=== PATIENT | male | born 1970 | race Caucasian/White ===

== ENCOUNTER 2016-12-19 23:30 | Emergency (ER) | payer OTHER ==
--- NOTE | 2016-12-20 01:56 | ED NURSING NOTES ---
Clinical Report - Nurses [facility] [address] [place] [address] 12/19/2016 23:32 Patient: AINSLEY TIM TRIAGE Triage time 00:26. Acuity: LEVEL 4. Chief Complaint: COUGH. 00:33. Alert. SEPSIS SCREEN: Sepsis Screen. Negative (no infection suspected/documented). --00:33 Harpreet Larios R.N. 00:26 12/20/16. BP: 150/72. HR: 96. RR: 16. O2 saturation: 99%. Temp: 97.9 F (oral). Pain level now: 0/10. --00:33 Harpreet Larios R.N. Weight: 111.1 kg stated. Height/Length: 67 inches Per Patient. BMI: 38.4. --00:31 Harpreet Larios R.N. Medications MetFORMIN HCl Oral (Tablet 1000 mg) 1 tablet, 2x a day. --00:28 Harpreet Larios R.N. Glipizide Oral, 2x a day (pt unsure of dose ). --00:29 Harpreet Larios R.N. ASA Oral 81mg, tona;y. --00:29 Harpreet Larios R.N. Lisinopril Oral 20 mg, daily. --00:30 Harpreet Larios R.N. Atorvastatin Calcium Oral (pt unsure of dose ). --00:31 Harpreet Larios R.N. Another bp med. --00:31 Harpreet Larios R.N. Medication/allergy information source: the patient. --00:33 Harpreet Larios R.N. Allergies No Known Drug Allergy. --00:31 Harpreet Larios R.N. History Arrived by private vehicle. Historian: patient. Accompanied by family. Primary physician (Arnold). Onset. (4- 5 days ago). 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 PAST MEDICAL HX: Immunizations: up-to-date. SOCIAL HX: Never smoker. Occasional alcohol use. No drug use. No infectious disease exposure. ABUSE ASSESSMENT: No report of abuse. FALL RISK ASSESSMENT: Fall risk assessment completed. No fall risk identified. NUTRITIONAL RISK ASSESSMENT: The nutritional risk assessment revealed no deficiencies. FUNCTIONAL ASSESSMENT: Functional assessment: no impairments noted. LEARNING NEEDS ASSESSMENT: The learning needs assessment revealed no barriers. SKIN INTEGRITY ASSESSMENT: Skin integrity risk assessment completed. No skin integrity risk identified. --00:33 Harpreet Larios R.N. PROBLEMS: Hypertension. Hypercholesterolemia. Diabetes Mellitus. --00:32 Harpreet Larios R.N. ADDITIONAL SURGERIES: no known surgeries. Interventions ID band on patient. To treatment room. --00:33 Harpreet Larios R.N. PHYSICAL ASSESSMENT 00:40. Ambulatory to room. GENERAL / NEURO / PSYCH: Alert. Oriented X 4. HEENT: No facial asymmetry noted. Mucous membranes are pink. RESPIRATORY: Respirations not labored. Cough. SKIN: Skin intact. Skin is warm and dry. Normal skin turgor. --00:40 Harpreet Larios R.N. NURSING PROGRESS NOTES 00:40. Head of bed elevated. Two patient identifiers checked. Call light placed in reach. Bed placed in lowest position. Brakes of bed on. Patient ready for evaluation- chart flagged. --00:40 Harpreet Larios R.N. DISPOSITION / DISCHARGE Condition at departure: improved. The goals identified in the patient's plan of care were met. No learning barriers present. Discharge instructions provided and reviewed with the patient. Reviewed medication(s) side effects, precautions, dosing and course information. Prescription(s) given to the patient. FALL RISK ASSESSMENT: Fall risk assessment completed. No fall risk identified. --02:07 Simone Teixeira R.N. 02:06 12/20/16. BP: 100/57. HR: 88. RR: 16. O2 saturation: 100%. Temp: 98.2 F (oral). Pain level now: 0/10. --02:07 Simone Teixeira R.N. Departure time: 0212 AM. --02:12 Simone Teixeira R.N. Locked/Released at 12/20/2016 2:12 by Simone Teixeira R.N.
--- NOTE | 2016-12-20 01:56 | ED CLINICAL REPORT ---
Clinical Report - Physicians/Mid Levels [facility] [address] [place] [address] 12/19/2016 23:32 Patient: AINSLEY TIM Time Seen: 00:55. Arrived- By private vehicle. Historian- patient and spouse. HISTORY OF PRESENT ILLNESS Chief Complaint: COUGH. This started several days ago and is still present. It was gradual in onset and has been intermittent and waxing/waning. The illness is described as moderate. The patient has had a cough and nasal congestion. No sputum production, difficulty breathing, chest discomfort or pain or fever. No chills. Additional history - The patient has had contact with a sick spouse. They have had similar symptoms. REVIEW OF SYSTEMS No chills, fever, sweats, calf pain or chest pain. No difficulty breathing, pedal edema, palpitations, abdominal pain or constipation. No diarrhea, nausea, vomiting or urinary problems. All systems otherwise negative, except as recorded above. PAST HISTORY Problems: Diabetes Mellitus. Hypercholesterolemia. Hypertension. Additional Surgeries: no known surgeries. Medications: Another bp med. Atorvastatin Calcium Oral (pt unsure of dose ). Lisinopril Oral 20 mg, daily. ASA Oral 81mg, tona;y. Glipizide Oral, 2x a day (pt unsure of dose ). MetFORMIN HCl Oral (Tablet 1000 mg) 1 tablet, 2x a day. Allergies: No Known Drug Allergy. SOCIAL HISTORY Never smoker. Occasional alcohol use. No drug use. FAMILY HISTORY No significant family medical history. ADDITIONAL NOTES The nursing notes have been reviewed. PHYSICAL EXAM Vital Signs: 12/20/2016 00:26 BP: 150/72. HR: 96. RR: 16. O2 saturation: 99%. Temp: 97.9 F. Pain level now: 0/10. Have been reviewed. Appearance: Alert. No acute distress. Eyes: Pupils equal, round and reactive to light. ENT: Ears normal. Nose normal. Pharynx normal. Uvula midline. Neck: Normal inspection. Neck supple. CVS: Normal heart rate and rhythm. Heart sounds normal. Respiratory: No respiratory distress. Breath sounds normal. No rales, rhonchi or wheezes. (occasional dry cough noted while he was in examination room). Abdomen: Soft and nontender. No organomegaly. Back: Normal inspection. Skin: Skin warm and dry. Normal skin color. Normal skin turgor. Extremities: Extremities exhibit normal ROM. No calf tenderness. No lower extremity edema. PROGRESS AND PROCEDURES Course of Care: Patient is stable. Patient/family counseled. Old medical records ordered. Old records unavailable. Disposition: Discharged. Condition: stable. CLINICAL IMPRESSION Acute upper respiratory infection. INSTRUCTIONS Drink plenty of fluids. Warnings: GENERAL WARNINGS: Return or contact your physician immediately if your condition worsens or changes unexpectedly, if not improving as expected, or if other problems arise. Prescription Medications: Tessalon Perles 100 mg: Take 1 orally every 8 hours as needed for cough. Dispense twenty (20). No refills. Substitution is permissible. Follow-up: Follow up with your doctor in seven days if not better. Understanding of the discharge instructions verbalized by patient and family. (Electronically signed by Luis Peña MD 12/21/2016 7:56)
--- NOTE | 2016-12-20 01:56 | ED NURSING NOTES ---
Clinical Report - Nurses [facility] [address] [place] [address] 12/19/2016 23:32 Patient: AINSLEY TIM TRIAGE Triage time 00:26. Acuity: LEVEL 4. Chief Complaint: COUGH. 00:33. Alert. SEPSIS SCREEN: Sepsis Screen. Negative (no infection suspected/documented). --00:33 Harpreet Larios R.N. 00:26 12/20/16. BP: 150/72. HR: 96. RR: 16. O2 saturation: 99%. Temp: 97.9 F (oral). Pain level now: 0/10. --00:33 Harpreet Larios R.N. Weight: 111.1 kg stated. Height/Length: 67 inches Per Patient. BMI: 38.4. --00:31 Harpreet Larios R.N. Medications MetFORMIN HCl Oral (Tablet 1000 mg) 1 tablet, 2x a day. --00:28 Harpreet Larios R.N. Glipizide Oral, 2x a day (pt unsure of dose ). --00:29 Harpreet Larios R.N. ASA Oral 81mg, tona;y. --00:29 Harpreet Larios R.N. Lisinopril Oral 20 mg, daily. --00:30 Harpreet Larios R.N. Atorvastatin Calcium Oral (pt unsure of dose ). --00:31 Harpreet Larios R.N. Another bp med. --00:31 Harpreet Larios R.N. Medication/allergy information source: the patient. --00:33 Harpreet Larios R.N. Allergies No Known Drug Allergy. --00:31 Harpreet Larios R.N. History Arrived by private vehicle. Historian: patient. Accompanied by family. Primary physician (Arnold). Onset. (4- 5 days ago). 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 PAST MEDICAL HX: Immunizations: up-to-date. SOCIAL HX: Never smoker. Occasional alcohol use. No drug use. No infectious disease exposure. ABUSE ASSESSMENT: No report of abuse. FALL RISK ASSESSMENT: Fall risk assessment completed. No fall risk identified. NUTRITIONAL RISK ASSESSMENT: The nutritional risk assessment revealed no deficiencies. FUNCTIONAL ASSESSMENT: Functional assessment: no impairments noted. LEARNING NEEDS ASSESSMENT: The learning needs assessment revealed no barriers. SKIN INTEGRITY ASSESSMENT: Skin integrity risk assessment completed. No skin integrity risk identified. --00:33 Harpreet Larios R.N. PROBLEMS: Hypertension. Hypercholesterolemia. Diabetes Mellitus. --00:32 Harpreet Larios R.N. ADDITIONAL SURGERIES: no known surgeries. Interventions ID band on patient. To treatment room. --00:33 Harpreet Larios R.N. PHYSICAL ASSESSMENT 00:40. Ambulatory to room. GENERAL / NEURO / PSYCH: Alert. Oriented X 4. HEENT: No facial asymmetry noted. Mucous membranes are pink. RESPIRATORY: Respirations not labored. Cough. SKIN: Skin intact. Skin is warm and dry. Normal skin turgor. --00:40 Harpreet Larios R.N. NURSING PROGRESS NOTES 00:40. Head of bed elevated. Two patient identifiers checked. Call light placed in reach. Bed placed in lowest position. Brakes of bed on. Patient ready for evaluation- chart flagged. --00:40 Harpreet Larios R.N. DISPOSITION / DISCHARGE Condition at departure: improved. The goals identified in the patient's plan of care were met. No learning barriers present. Discharge instructions provided and reviewed with the patient. Reviewed medication(s) side effects, precautions, dosing and course information. Prescription(s) given to the patient. FALL RISK ASSESSMENT: Fall risk assessment completed. No fall risk identified. --02:07 Simone Teixeira R.N. 02:06 12/20/16. BP: 100/57. HR: 88. RR: 16. O2 saturation: 100%. Temp: 98.2 F (oral). Pain level now: 0/10. --02:07 Simone Teixeira R.N. Departure time: 0212 AM. --02:12 Simone Teixeira R.N. Locked/Released at 12/20/2016 2:12 by Simone Teixeira R.N.
--- NOTE | 2016-12-21 07:57 | ED MED RECONCILIATION SUMMARY ---
Patient: AINSLEY TIM Medication Reconciliation Report [facility] VisitID: [id number] [address] [place] [address] 46y, M Registration Date/Time: 12/19/2016 Weight: 111.1 kg Height/Length: 67 in. BMI: 38.4 ALLERGIES: No Known Drug Allergy The patient's Home Medications are listed below: THE FOLLOWING MEDICATIONS NEED TO BE RECONCILED: Another bp med ASA Oral 81mg, tona;y Atorvastatin Calcium Oral, pt unsure of dose Glipizide Oral, 2x a day, pt unsure of dose Lisinopril Oral 20 mg, daily MetFORMIN HCl Oral (1000 mg) 1 tablet, 2x a day The source(s) of the original Home Medication information: patient The following Medications were given to the patient in the Emergency Department: None. The following Medications were prescribed to the patient: Tessalon Perles 100 mg: Take 1 orally every 8 hours as needed for cough. Dispense twenty (20). No refills. Substitution is permissible. -- Luis Peña MD
--- NOTE | 2016-12-21 07:57 | ED DISCHARGE INSTRUCTIONS ---
Patient: AINSLEY TIM General Instructions [facility] VisitID: [id number] [place] [address] 46y, M Registration Date/Time: 12/19/2016 Acute upper respiratory infection. INSTRUCTIONS Drink plenty of fluids. Warnings: GENERAL WARNINGS: Return or contact your physician immediately if your condition worsens or changes unexpectedly, if not improving as expected, or if other problems arise. Prescription Medications: Tessalon Perles 100 mg: Take 1 orally every 8 hours as needed for cough. Dispense twenty (20). No refills. Substitution is permissible. Follow-up: Follow up with your doctor in seven days if not better. Understanding of the discharge instructions verbalized by patient and family. ADDITIONAL INFORMATION Viral Respiratory Illness [Adult] You have an Upper Respiratory Illness (URI) caused by a virus. This illness is contagious during the first few days. It is spread through the air by coughing and sneezing or by direct contact (touching the sick person and then touching your own eyes, nose or mouth). Most viral illnesses go away within 7-10 days with rest and simple home remedies. Sometimes, the illness may last for several weeks. Antibiotics will not kill a virus and are generally not prescribed for this condition. Home Care: 1) If symptoms are severe, rest at home for the first 2-3 days. When you resume activity, don't let yourself get too tired. 2) Avoid being exposed to cigarette smoke (yours or others). 3) Tylenol (acetaminophen) or ibuprofen (Advil, Motrin) will help fever, muscle aching and headache. (Persons under 18 with fever should not take aspirin since this may cause liver damage.) 4) Your appetite may be poor, so a light diet is fine. Avoid dehydration by drinking 6-8 glasses of fluids per day (water, soft drinks, juices, tea, soup). Extra fluids will help loosen secretions in the nose and lungs. 5) Aexe-uor-zereqqu cold medicines will not shorten the length of time youre sick, but they may be helpful for the following symptoms: cough (Robitussin DM); sore throat (Chloraseptic lozenges or spray); nasal and sinus congestion (Actifed, Sudafed, Chlortrimeton). Follow Up with your doctor or as advised if you dont improve over the next week. Get Prompt Medical Attention if any of the following occur: -- Cough with lots of colored sputum (mucus) or blood in your sputum -- Chest pain, shortness of breath, wheezing or have trouble breathing -- Severe headache; face, neck or ear pain -- Fever over 100.4 F (38.0 C) for more than three days -- You cant swallow due to throat pain Benzonatate Oral capsule, liquid filled What is this medicine? BENZONATATE (oumar REX na coppola) is used to treat cough. How should I use this medicine? Take this medicine by mouth with a glass of water. Follow the directions on the prescription label. Avoid breaking, chewing, or sucking the capsule, as this can cause serious side effects. Take your medicine at regular intervals. Do not take your medicine more often than directed. Talk to your charge aide regarding the use of this medicine in children. While this drug may be prescribed for children as young as 10 years old for selected conditions, precautions do apply. What side effects may I notice from receiving this medicine? Side effects that you should report to your doctor or health respiratory care specialist as soon as possible: allergic reactions like skin rash, itching or hives, swelling of the face, lips, or tongue breathing problems chest pain confusion or hallucinations irregular heartbeat numbness of mouth or throat seizures Side effects that usually do not require medical attention (report to your doctor or health respiratory care specialist if they continue or are bothersome): burning feeling in the eyes constipation headache nasal congestion stomach upset What may interact with this medicine? Do not take this medicine with any of the following medications: MAOIs like Carbex, Eldepryl, Marplan, Nardil, and Parnate What if I miss a dose? If you miss a dose, take it as soon as you can. If it is almost time for your next dose, take only that dose. Do not take double or extra doses. Where should I keep my medicine? Keep out of the reach of children. Store at room temperature between 15 and 30 degrees C (59 and 86 degrees F). Keep tightly closed. Protect from light and moisture. Throw away any unused medicine after the expiration date. What should I tell my health care provider before I take this medicine? They need to know if you have any of these conditions: kidney or liver disease an unusual or allergic reaction to benzonatate, anesthetics, other medicines, foods, dyes, or preservatives or trying to get breast-feeding What should I watch for while using this medicine? Tell your doctor if your symptoms do not improve or if they get worse. If you have a high fever, skin rash, or headache, see your health respiratory care specialist. You may get drowsy or dizzy. Do not drive, use machinery, or do anything that needs mental alertness until you know how this medicine affects you. Do not sit or stand up quickly, especially if you are an older patient. This reduces the risk of dizzy or fainting spells. You have been given the following additional information: Uri, Viral, No Abx (Adult) Benzonatate Oral capsule, liquid filled (Electronically signed by Luis Peña MD 12/21/2016 7:56)
--- NOTE | 2016-12-21 07:57 | ED MAR SUMMARY ---
..... Medication Administration Record [facility] [address], [place] [id number] Patient: AINSLEY TIM Visit ID: [id number] 46y, M Weight: 111.1 kg Height/Length: 67 in BMI: 38.4 ALLERGIES: No Known Drug Allergy
--- NOTE | 2016-12-21 07:57 | ED MED RECONCILIATION SUMMARY ---
Patient: AINSLEY TIM Medication Reconciliation Report [facility] VisitID: [id number] [address] [place] [address] 46y, M Registration Date/Time: 12/19/2016 Weight: 111.1 kg Height/Length: 67 in. BMI: 38.4 ALLERGIES: No Known Drug Allergy The patient's Home Medications are listed below: THE FOLLOWING MEDICATIONS NEED TO BE RECONCILED: Another bp med ASA Oral 81mg, tona;y Atorvastatin Calcium Oral, pt unsure of dose Glipizide Oral, 2x a day, pt unsure of dose Lisinopril Oral 20 mg, daily MetFORMIN HCl Oral (1000 mg) 1 tablet, 2x a day The source(s) of the original Home Medication information: patient The following Medications were given to the patient in the Emergency Department: None. The following Medications were prescribed to the patient: Tessalon Perles 100 mg: Take 1 orally every 8 hours as needed for cough. Dispense twenty (20). No refills. Substitution is permissible. -- Luis Peña MD
--- NOTE | 2016-12-21 07:57 | ED DISCHARGE INSTRUCTIONS ---
Patient: AINSLEY TIM General Instructions [facility] VisitID: [id number] [place] [address] 46y, M Registration Date/Time: 12/19/2016 Acute upper respiratory infection. INSTRUCTIONS Drink plenty of fluids. Warnings: GENERAL WARNINGS: Return or contact your physician immediately if your condition worsens or changes unexpectedly, if not improving as expected, or if other problems arise. Prescription Medications: Tessalon Perles 100 mg: Take 1 orally every 8 hours as needed for cough. Dispense twenty (20). No refills. Substitution is permissible. Follow-up: Follow up with your doctor in seven days if not better. Understanding of the discharge instructions verbalized by patient and family. ADDITIONAL INFORMATION Viral Respiratory Illness [Adult] You have an Upper Respiratory Illness (URI) caused by a virus. This illness is contagious during the first few days. It is spread through the air by coughing and sneezing or by direct contact (touching the sick person and then touching your own eyes, nose or mouth). Most viral illnesses go away within 7-10 days with rest and simple home remedies. Sometimes, the illness may last for several weeks. Antibiotics will not kill a virus and are generally not prescribed for this condition. Home Care: 1) If symptoms are severe, rest at home for the first 2-3 days. When you resume activity, don't let yourself get too tired. 2) Avoid being exposed to cigarette smoke (yours or others). 3) Tylenol (acetaminophen) or ibuprofen (Advil, Motrin) will help fever, muscle aching and headache. (Persons under 18 with fever should not take aspirin since this may cause liver damage.) 4) Your appetite may be poor, so a light diet is fine. Avoid dehydration by drinking 6-8 glasses of fluids per day (water, soft drinks, juices, tea, soup). Extra fluids will help loosen secretions in the nose and lungs. 5) Wsrq-grd-jahjhvi cold medicines will not shorten the length of time youre sick, but they may be helpful for the following symptoms: cough (Robitussin DM); sore throat (Chloraseptic lozenges or spray); nasal and sinus congestion (Actifed, Sudafed, Chlortrimeton). Follow Up with your doctor or as advised if you dont improve over the next week. Get Prompt Medical Attention if any of the following occur: -- Cough with lots of colored sputum (mucus) or blood in your sputum -- Chest pain, shortness of breath, wheezing or have trouble breathing -- Severe headache; face, neck or ear pain -- Fever over 100.4 F (38.0 C) for more than three days -- You cant swallow due to throat pain Benzonatate Oral capsule, liquid filled What is this medicine? BENZONATATE (oumar REX na coppola) is used to treat cough. How should I use this medicine? Take this medicine by mouth with a glass of water. Follow the directions on the prescription label. Avoid breaking, chewing, or sucking the capsule, as this can cause serious side effects. Take your medicine at regular intervals. Do not take your medicine more often than directed. Talk to your music journalist regarding the use of this medicine in children. While this drug may be prescribed for children as young as 10 years old for selected conditions, precautions do apply. What side effects may I notice from receiving this medicine? Side effects that you should report to your doctor or health critical care unit nurse as soon as possible: allergic reactions like skin rash, itching or hives, swelling of the face, lips, or tongue breathing problems chest pain confusion or hallucinations irregular heartbeat numbness of mouth or throat seizures Side effects that usually do not require medical attention (report to your doctor or health critical care unit nurse if they continue or are bothersome): burning feeling in the eyes constipation headache nasal congestion stomach upset What may interact with this medicine? Do not take this medicine with any of the following medications: MAOIs like Carbex, Eldepryl, Marplan, Nardil, and Parnate What if I miss a dose? If you miss a dose, take it as soon as you can. If it is almost time for your next dose, take only that dose. Do not take double or extra doses. Where should I keep my medicine? Keep out of the reach of children. Store at room temperature between 15 and 30 degrees C (59 and 86 degrees F). Keep tightly closed. Protect from light and moisture. Throw away any unused medicine after the expiration date. What should I tell my health care provider before I take this medicine? They need to know if you have any of these conditions: kidney or liver disease an unusual or allergic reaction to benzonatate, anesthetics, other medicines, foods, dyes, or preservatives or trying to get breast-feeding What should I watch for while using this medicine? Tell your doctor if your symptoms do not improve or if they get worse. If you have a high fever, skin rash, or headache, see your health critical care unit nurse. You may get drowsy or dizzy. Do not drive, use machinery, or do anything that needs mental alertness until you know how this medicine affects you. Do not sit or stand up quickly, especially if you are an older patient. This reduces the risk of dizzy or fainting spells. You have been given the following additional information: Uri, Viral, No Abx (Adult) Benzonatate Oral capsule, liquid filled (Electronically signed by Luis Peña MD 12/21/2016 7:56)
--- NOTE | 2016-12-21 07:57 | ED MAR SUMMARY ---
..... Medication Administration Record [facility] [address] [place], [place] [id number] Patient: AINSLEY TIM Visit ID: [id number] 46y, M Weight: 111.1 kg Height/Length: 67 in BMI: 38.4 ALLERGIES: No Known Drug Allergy
== END 2016-12-20 02:05 | disposition home or self-care (01) ==
LOC: ED SRH 23:30
DX: J06.9 Acute upper respiratory infection, unspecified (principal); I10 Essential (primary) hypertension; E11.9 Type 2 diabetes mellitus without complications